=== PATIENT | female | born 1950 | race Caucasian/White ===

== ENCOUNTER → 2022-12-15 19:14 | Outpatient (CLI) | payer MEDICARE, SELFPAY ==
[2022-12-15 22:08] LABS: Influenza A - CEPHEID Flu A NEGATIVE (NEGATIVE); Influenza B - CEPHEID Flu B NEGATIVE (NEGATIVE); Respiratory Syncytial Virus Negative (Negative)
[2022-12-15 22:09] LABS: COVID-19 CEPHEID 4-PLEX PCR Negative (Negative)
== END ==
PROVIDERS: Visit Provider Nurse Practitioner Family
DX: R09.81 Nasal congestion (principal); R53.83 Other fatigue; Z20.822 Contact with and (suspected) exposure to COVID-19
CPT/HCPCS: 0241U

== ENCOUNTER 2025-03-03 07:14 | Inpatient (IN) | payer OTHER, SELFPAY ==
[2025-03-03] VITALS (20 sets, daily range): BP systolic 109–160; BP diastolic 53–75; PULSE 66–93; RESP 14–45; TEMP 36–38.2; O2SAT 88–97; BMI 42.9; BMI 44.8
--- NOTE | 2025-03-03 07:37 | DI.RAD.S_ITS ---
PROCEDURE: XR CHEST 1V INDICATIONS: Shortness of breath TECHNIQUE: One view of the chest was acquired. COMPARISON: None. FINDINGS: Surgical changes and devices: None. Lungs and pleura: Mild interstitial prominence. No focal consolidation is seen. No pleural effusions or pneumothorax. Mediastinum: Cardiac silhouette is enlarged. Bones and chest wall: No suspicious bony lesions. Overlying soft tissues appear unremarkable. IMPRESSION: Cardiomegaly. Mild interstitial prominence may indicate mild edema. Approved by: Asad Downing M.D. on 03/03/2025 at 8:42
--- NOTE | 2025-03-03 07:51 | ED_ITS ---
HPI - SOB/Dyspnea General Chief Complaint: Shortness of Breath/Dyspnea Stated Complaint: post cardiac ablation, fever and sob Time Seen by Provider: 03/03/25 07:51 Source: patient, RN notes reviewed and old records reviewed Mode of arrival: Ambulatory Limitations: no limitations History of Present Illness HPI Narrative: 74-year-old female history of atrial fibrillation anticoagulant on Eliquis, on amiodarone and diltiazem, CHF, GERD, diabetes on tirzepetide. Patient had cardiac ablation on 03/01/2025 at [facility] for atrial fibrillation. Notes she felt short of breath immediately afterwards. She states no chest pain but feels like she can not take a full breath. Patient states developed fevers in the last 24 hours up to 101.5 F at home. Called Cardiology who encouraged her to come for evaluation. She denies nausea or vomiting. She denies any change in her chest discomfort. States that has immediately after her ablation. She states she had a cough immediately afterwards from the intubation but that has not resolved. She denies any upper respiratory symptoms. No pain in her back. No abdominal back or flank pain. Denies diarrhea or constipation or urinary symptoms. Patient states she is on Eliquis daily which she has been taking pre and post ablation, was started on an amiodarone 200 mg b.i.d. has not had her morning dose, she has been on diltiazem extended release 120 mg. States spironolactone 50 mg daily, loratadine, meloxicam, oxycodone and tirzepatide weekly. Reports an allergy to sulfa, shellfish, reports a contrast dye allergy but tolerates with pretreatment with Benadryl, notes prior knee surgery 8 years ago and ankle surgery for fracture after skydiving. Former smoker, no regular alcohol, denies any recreational drugs. Related Data Home Medications ?Medication ?Instructions ?Recorded ?Confirmed amiodarone 200 mg tablet 200 mg PO Q12H 03/03/2502/12 apixaban 5 mg tablet (Eliquis) 5 mg PO BID 03/03/25 clonazepam 0.5 mg tablet 0.5 mg PO DAILY 03/03/25 diltiazem HCl 120 mg capsule,24 120 mg PO Q24H 5 03/03/25 hr,extended release meloxicam 15 mg tablet 15 mg PO DAILY 03/03/2502/12 mupirocin 2 % topical ointment 1 applic topical DIR ECTED 03/03/25 03/03/25 oxycodone 5 mg tablet 5 mg PO Q6H PRN pain 5 03/03/25 pantoprazole 40 mg tablet,delayed 40 mg PO DAILY 03/0303/03/25 release spironolactone 25 mg tablet 25 mg PO BID 03/03/2502/12 tirzepatide (weight loss) 2.5 2.5 mg SUBCUT WEEKLY 03/03/25 mg/0.5 mL subcutaneous pen injector ([employer]) Previous Rx's ?Medication ?Instructions ?Recorded fluticasone propionate 50 1 spray intranasal Q12H #16 grams 12/15/22 mcg/actuation nasal spray,suspension (Flonase Allergy Relief) Allergies Allergy/AdvReac Type Severity Reaction Status Date / Time Sulfa (Sulfonamide Allergy Severe Anaphylaxis Verified 03/03/25 07:26 Antibiotics) Iodinated Contrast Media Allergy Mild Hives Verified 03/03/25 07:26 shellfish derived Allergy Mild Anaphylaxis Verified 03/03/25 07:26 Review of Systems Review of Systems ROS Unobtainable: All systems reviewed & are unremarkable except as noted in HPI and below Patient History Social History Smoking Status: Former smoker Smoking Status: Former smoker tobacco type: cigarettes Exam Narrative Exam Narrative: GENERAL: Alert and oriented x three, female in mild distress HEENT: Head normocephalic, atraumatic, EOMI, pupils reactive, face symmetric, moist mucous membranes NECK: Supple, full range of motion CARDIOVASCULAR: Regular rate and rhythm without murmurs, rubs or gallops. No JVD. No edema bilateral lower extremities. RESPIRATORY: Breath sounds equal bilaterally, no wheezes rales or rhonchi. ABDOMEN: Soft, nontender. Normoactive bowel sounds all 4 quadrants. No guarding or rebound, rigidity, no mass, patient has catheterization sites bilateral inguinal region, there is a small amount of ecchymosis, no warmth, no erythema, pulses are palpable bilaterally. Nontender. : No CVA tenderness EXTREMITIES: Normal range of motion, no clubbing or edema. Neurovascularly intact NEUROLOGICAL: Cranial nerves II through XII grossly intact. Moving all extremities SKIN: Warm, dry, no petechiae, no rashes or lesions. Initial Vital Signs Initial Vital Signs: Vital Signs Temperature 100.8 F H 03/03/25 07:31 Pulse Rate 77 03/03/25 07:31 Respiratory Rate 18 03/03/25 07:31 Blood Pressure 137/62 03/03/25 07:31 Pulse Oximetry 95 03/03/25 07:31 Oxygen Delivery Method Room Air 03/03/25 07:31 Course Orders Ordered: ED Orders 03/03/25 07:37 XR chest 1V Stat EKG-12 Lead Stat RT Consult Eval and Treat STAT 03/03/25 07:45 Complete Blood Count AUTO DIFF Stat Comprehensive Metabolic Panel Stat Lactate (Lactic Acid) Stat NT-proBNP (BNP-Adult 18+) Stat Procalcitonin Stat Prothrombin Time INR Stat Troponin I Stat 03/03/25 08:17 CT angio chest PE protocol Stat 03/03/25 08:39 Blood Culture Stat 03/03/25 09:45 Trop I [Troponin I] Stat 03/03/25 11:36 RT Consult Eval and Treat NOW 03/03/25 11:49 Respiratory Panel (Film Array) Stat 03/04/25 05:00 Basic Metabolic Panel Routine Complete Blood Count AUTO DIFF Routine Acetaminophen (Acetaminophen 325 Mg Tablet) 650 mg PO Q6H PRN PRN Reason: Fever/Mild Pain (1-3) Amiodarone HCl (Amiodarone 200 Mg Tablet) 200 mg PO BID OWEN Apixaban (Apixaban 5 Mg Tablet) 5 mg PO BID OWEN Clonazepam (Clonazepam 0.5 Mg Tablet) 0.5 mg PO DAILY OWEN Diltiazem HCl (Diltiazem Cd 120 Mg Cap) 120 mg PO DAILY OWEN Fluticasone Propionate (Fluticasone 120 [place]/16 Gm [place].Susp) 1 spray NASAL BID OWEN Piperacillin Sod/Tazobactam (Sod 3.375 gm/ Sodium Chloride) 100 mls @ 25 mls/hr IV Q8H OWEN Mupirocin (Mupirocin 22 Gm Oint) 1 applic TOP DIRECTED OWEN Naloxone HCl (Naloxone 0.4 Mg/Ml Vial) 0.2 mg IV Q2MIN PRN PRN Reason: Opiate Reversal Oxycodone HCl (Oxycodone Ir 5 Mg Tablet) 5 mg PO Q6H PRN PRN Reason: pain Pantoprazole Sodium (Pantoprazole Dr 40 Mg Tablet) 40 mg PO DAILY [facility] Spironolactone (Spironolactone 25 Mg Tablet) 25 mg PO BID OWEN Discontinued Medications Amiodarone HCl (Amiodarone 200 Mg Tablet) 200 mg PO Q12H [facility] Apixaban (Apixaban 5 Mg Tablet) 5 mg PO NOW ONE Stop: 03/03/25 11:37 Last Admin: 03/03/25 11:39 Dose: 5 mg Documented By: SB Diphenhydramine HCl (Diphenhydramine 50 Mg/Ml Vial) 50 mg IV NOW ONE Stop: 03/03/25 08:18 Last Admin: 03/03/25 08:31 Dose: 50 mg Documented By: BS Fluticasone Propionate (Fluticasone 120 [place]/16 Gm [place].Susp) 1 spray NASAL Q12H [facility] Piperacillin Sod/Tazobactam (Sod 4.5 gm/ Sodium Chloride) 100 mls @ 200 mls/hr IV NOW ONE Stop: 03/03/25 09:31 Last Infusion: 03/03/25 10:34 Dose: Infused Documented By: Admin: 03/03/25 09:54 Dose: 200 mls/hr Documented By: BETINA Piperacillin Sod/Tazobactam (Sod 3.375 gm/ Sodium Chloride) 100 mls @ 25 mls/hr IV Q8H [facility] Stop: 03/08/25 11:44 Methylprednisolone (Methylprednisolone Succ 125 Mg/2 Ml Vial) 125 mg IV NOW ONE Stop: 03/03/25 08:18 Last Admin: 03/03/25 08:31 Dose: 125 mg Documented By: BS Non-Formulary Medication (Diltiazem Hcl) 120 mg PO Q24H [facility] Vital Signs Vital signs: Vital Signs - 8 hr 03/03/25 07:31 03/03/25 07:53 03/03/25 07:54 Temperature 100.8 F H Pulse Rate 77 93 H Respiratory Rate 18 28 H Blood Pressure 137/62 142/63 H Pulse Oximetry 95 93 Oxygen Delivery Method Room Air Oxygen Flow Rate 03/03/25 07:54 03/03/25 08:00 03/03/25 08:00 Temperature Pulse Rate 90 86 Respiratory Rate 30 H 44 H Blood Pressure 132/63 Pulse Oximetry 93 93 Oxygen Delivery Method Oxygen Flow Rate 03/03/25 08:30 03/03/25 08:30 03/03/25 09:02 Temperature 100.8 F H Pulse Rate 89 83 Respiratory Rate 41 H 24 Blood Pressure 121/75 Pulse Oximetry 92 92 Oxygen Delivery Method Nasal Cannula Oxygen Flow Rate 2 03/03/25 09:17 03/03/25 09:17 03/03/25 09:30 Temperature Pulse Rate 79 Respiratory Rate 27 H Blood Pressure 136/61 118/55 L Pulse Oximetry 93 Oxygen Delivery Method Oxygen Flow Rate 03/03/25 09:30 03/03/25 09:44 03/03/25 09:44 Temperature 99.2 F Pulse Rate 78 86 Respiratory Rate 26 H 27 H Blood Pressure 136/62 Pulse Oximetry 93 88 L Oxygen Delivery Method Nasal Cannula Room Air Oxygen Flow Rate 2 MDM - SOB/Dyspnea Lab Data 03/03/25 07:45 03/03/25 07:45 Labs: Lab Results 03/03/25 03/03/25 Range/Units 07:45 09:45 WBC 15.6 H (4.5-11.0) X10^3/uL RBC 3.82 L (4.0-5.2) X10^6/uL Hgb 11.3 L (12.0-16.0) g/dL Hct 33.5 L (36-46) % MCV 87.6 (80-100) fL MCH 29.5 (26-34) PG MCHC 33.6 (30-36) % RDW 14.5 (11.6-14.8) % Plt Count 236 (150-400) X10^3/uL Neut % (Auto) 71.4 (50-75) % Lymph % (Auto) 16.5 L (25-40) % Kerr % (Auto) 11.3 (3-14) % Eos % (Auto) 0.5 L (2-4) % Baso % (Auto) 0.3 (0-2) % Neut # (Auto) 51399 H (5873-0774) /uL Lymph # (Auto) 2600 (2284-5552) /uL Kerr # (Auto) 1800 H (0-900) /uL Eos # (Auto) 100 (0-450) /uL Baso # (Auto) 0 (0-100) /uL PT 16.7 H (9.4-12.5) SECONDS INR 1.5 H (0.9-1.3) Sodium 135 L (137-145) mmol/L Potassium 3.8 (3.4-5.1) mmol/L Chloride 103 (98-107) mmol/L Carbon Dioxide 22 (22-32) mmol/L BUN 21 H (7-17) mg/dL Creatinine 1.00 (0.52-1.04) mg/dL Estimated GFR 59 L (>60) mL/min BUN/Creatinine Ratio 21.0 (6-22) Glucose 116 H (70-99) mg/dL Lactate 1.9 (0.7-2.1) mmol/L Calcium 8.6 (8.4-10.2) mg/dL Total Bilirubin 1.0 (0.2-1.3) mg/dL AST 51 H (14-36) IU/L ALT 25 (<35) IU/L Alkaline Phosphatase 53 (38-126) U/L Troponin I 2.370 H* 2.080 H* (0.01-0.034) ng/mL NT-Pro-B Natriuret Pep 798 H (<125) pg/mL Total Protein 7.0 (6.3-8.2) g/dL Albumin 4.1 (3.5-5.0) g/dL Globulin 2.9 (1.7-4.1) g/dL Albumin/Globulin Ratio 1.4 (1.0-2.8) Procalcitonin 0.051 (<0.5) ng/mL ECG Data Attestation: I personally reviewed and interpreted this ECG as follows: Prior ECG tracings: not available for review Interpretation: Sinus rhythm rate 87 WI 150 QRS 80 QTC of 409, no acute ST-elevation or depression appreciated. No prior for comparison. Sinus rhythm rate of 78 WI 156 QRS 84 QTC of 412, no acute ST elevation depression. No dynamic changes appreciated. MDM Narrative Medical decision making narrative: Sinus rhythm, rate of 87, no acute ST changes. Labs show white count of 15.6, hemoglobin 11.3 platelets are 236 no priors for comparison, patient has predominance of neutrophils count. INR is 1.5 patient does take apixaban daily. Chemistries shows sodium 135 BUN 21 electrolytes are otherwise appropriate creatinine is 1 glucose is 116 with a lactate of 1.9 AST is 51 but bilirubin ALT are normal, troponin 2.37 this is expected in the setting of a recent cardiac ablation repeat troponin was sent in his trending downward at 2.08. BNP 798, procalcitonin 0.051 Chest x-ray shows cardiomegaly, mild interstitial prominence may indicate mild edema. No focal consolidation, no pleural effusions or pneumothorax. CT angio no pulmonary embolism, moderate right pleural effusion with underlying vascular congestion. Heart size is normal, small hiatal hernia, no pericardial effusion. No aortic aneurysm. 0.7 cm left thyroid nodule. Patient had her home amiodarone and diltiazem dose here in the department. 74-year-old female with recent intubation and cardiac ablation on 03/01/2025 presents with fever, were hip shows a right pleural effusion, was started on oral antibiotics. Blood cultures are pending, patient has a white count of 15 but lactate and procalcitonin are normal. Troponin is elevated was repeated. During patient's stay O2 sats drop below 90%. You have been with ambulation they were 88%, patient is not normally on O2. No reported lung disease. Paged @ [phone] Spoke with cardiology at [facility] @ [phone], Dr. Johnston, would recommend treat for pneumonia, diuretics feel patient could stay here but if it is felt patient needs transfer today they would accept. We will speak with the hospitalist and recontact if they prefer transfer. Cardiology also notes that if patient is not improving over the next day or 2 can be re-contacted for transfer as well. Dr. Ace, hospitalist @ [phone] for [facility] accepts for inpatient. Discharge Plan Departure Patient Disposition: Admitted As Inpatient Clinical Impression: Pleural effusion on right, History of cardiac ablation for atrial fibrillation, Pneumonia Admit Date/Time: 03/03/25 11:39 Admit Provider: Jessica Ace
--- NOTE | 2025-03-03 08:05 | EKG_ITS ---
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
--- NOTE | 2025-03-03 08:17 | DI.CT.S_ITS ---
PROCEDURE: CT ANGIO CHEST PE PROTOCOL INDICATIONS: s/p cardiac ablation TECHNIQUE: After the administration of intravenous contrast, 2 mm thick sections acquired from the pulmonary apices to the posterior costophrenic angles. 3-dimensional maximum intensity projection (MIP) coronal and sagittal reformats were then acquired through the thorax. For radiation dose reduction, the following was used: automated exposure control, adjustment of mA and/or kV according to patient size. COMPARISON: None. FINDINGS: Image quality: Diagnostic. Pulmonary arteries: Pulmonary arteries are normal in size, and demonstrate no intraluminal filling defects to suggest central pulmonary embolism. Lower Neck: No enlarged lymph nodes. Thyroid: 2.7 cm left thyroid nodule Axillae: No enlarged lymph nodes. Chest Wall: Unremarkable. Bones: Unremarkable. Lungs and Pleura: Right moderate pleural effusion. Vascular congestion. Heart size normal. Small hiatal hernia Heart: Heart size is normal. No pericardial effusion. Thoracic Vessels: No aortic aneurysm. Mediastinum and [place]: No enlarged lymph nodes. Esophagus: No wall thickening. Small hiatal hernia. Upper Abdomen: Visualized upper abdomen solid organs and bowel loops appear normal. IMPRESSION: No pulmonary embolus. Moderate right pleural effusion with underlying vascular congestion Approved by: Nathan Daley M.D. on 03/03/2025 at 8:24
[2025-03-03] MEDS: diphenhydrAMINE 50 MG/ML VIAL IV (08:31)
[2025-03-03] MEDS: methylPREDNISolone succ 125 MG/2 ML VIAL IV (08:31)
[2025-03-03 08:33] LABS: Add Manual Diff / Slide Review NO; Hematocrit 33.5 % (36-46); Hemoglobin 11.3 g/dL (12.0-16.0); Lymphocytes Absolute Auto 2600 /uL (1100-4500); Mean Corpuscular HGB Conc 33.6 % (30-36); Mean Corpuscular Hemoglobin 29.5 PG (26-34); Mean Corpuscular Volume 87.6 fL (80-100); Platelet Count 236 X10^3/uL (150-400)
[2025-03-03 08:42] LABS: INR 1.5 (0.9-1.3); Prothrombin Time 16.7 SECONDS (9.4-12.5)
[2025-03-03 09:07] LABS: Alanine Aminotransferase 25 IU/L (<35); Albumin 4.1 g/dL (3.5-5.0); Albumin Globulin Ratio 1.4 (1.0-2.8); Alkaline Phosphatase 53 U/L (38-126); Blood Urea Nitrogen 21 mg/dL (7-17); Calcium 8.6 mg/dL (8.4-10.2); Carbon Dioxide 22 mmol/L (22-32); Chloride 103 mmol/L (98-107); Estimated Glomerular Filt Rate 59 mL/min (>60); Globulin 2.9 g/dL (1.7-4.1); Glucose 116 mg/dL (70-99); HEMOLYSIS < 15 (0-50); Lactate (Lactic Acid) 1.9 mmol/L (0.7-2.1); Potassium 3.8 mmol/L (3.4-5.1); Sodium 135 mmol/L (137-145); Total Protein 7.0 g/dL (6.3-8.2)
[2025-03-03 09:19] LABS: NT-proBNP (BNP-Adult 18+) 798 pg/mL (<125)
[2025-03-03 09:22] LABS: Troponin I 2.370 ng/mL (0.01-0.034)
[2025-03-03 09:24] LABS: Procalcitonin 0.051 ng/mL (<0.5)
[2025-03-03] MEDS: PIPERACILLIN/TAZO 4.5 GM in SODIUM CHLORIDE 0.9% 100 ML IV (09:54)
--- NOTE | 2025-03-03 10:06 | EKG_ITS ---
[place] [address] [address] [place] [address] Test Date: 2025-03-03 Pat Name: Alana Barron Department: Room: 226 Gender: Female Linesperson: RAVI : 1950 Requested By: Order Number: [id number] Reading MD: Enrico Mcqueen MD Measurements Intervals [place] Rate: 78 P: 79 AR: 156 QRS: 37 QRSD: 84 T: 35 QT: 362 QTc: 412 Interpretive Statements Normal sinus rhythm Electronically Signed On 03-04-2025 5:57:33 PDT by Enrico Mcqueen MD
[2025-03-03 10:36] LABS: Troponin I 2.080 ng/mL (0.01-0.034)
[2025-03-03] MEDS: APIXABAN 5 MG TABLET PO ×2 (11:39→20:03)
[2025-03-03 12:45] LABS: Coronavirus NL 63 Not Detected (Not Detect); SARS- CoV-2 Not Detected (Not Detecte)
[2025-03-03] MEDS: PIPERACILLIN/TAZO 3.375 GM in SODIUM CHLORIDE 0.9% 100 ML IV ×2 (14:39→21:12)
[2025-03-03] MEDS: SODIUM CHLORIDE 0.9% FLUSH 10 ML IV (14:40)
--- NOTE | 2025-03-03 18:57 | PC.NURSE ---
medication administration: oxycodone 5mg PO given per order, for pain 4-6 per provider.
--- NOTE | 2025-03-03 19:37 | PM.HP.1 ---
History of Present Illness History of Present Illness Chief complaint: post cardiac ablation, fever and sob Narrative: 74-year-old female with fairly recent diagnosis of permanent atrial fibrillation on chronic Eliquis anticoagulation, chronic congestive heart failure, GERD, diabetes mellitus on his appetite, who underwent a cardiac ablation for atrial fibrillation 2 days ago who presented to the emergency department complaining of shortness of breath and fever. Patient reports she learned she would atrial fibrillation through her smart watch. She states that she would receive notifications and thought that the watch was malfunctioning. She was not particularly symptomatic. She did notice when exercising she would get fairly high heart rates at 1 time as high as 180. She did find her exercise tolerance had decreased but she assumed it was related to her age or being deconditioned. When she went to see her primary care provider for her physical, she mentioned at the end of the visit about her watch showing AFib. Her PCP obtained an EKG which showed AFib and she was referred to Cardiology. A cardioversion was done after she was placed on anticoagulation but was unsuccessful. She ultimately underwent ablation 48 hours ago. She states that when she came out of anesthesia she was short of breath. She also had a cough which she presumed was related to intubation. She additionally had a sore throat. She had pressure in her chest which she was reassured was normal. She additionally had some abdominal discomfort which was new for her. She states she is typically able to eat anything she wants but has had difficulty eating a meal since her ablation. She states that she has been taking Protonix since the ablation due to this sensation of abdominal fullness. She states she has had ongoing chest discomfort which she expected after the ablation but has continued to have shortness of breath and this abdominal fullness sensation. Today however she developed a fever and came to the emergency department for further evaluation. In the emergency department she had a temperature of 100.8?, normal heart rate, respiratory rate in the high 20s to low 40s, O2 saturation down to 88% and up to 92% on 2 L. white blood cell count was 15 point. INR 1.5. Chemistry panel revealed a sodium of 135. Initial troponin was 2.37 and on recheck was 2.08. Chest x-ray revealed cardiomegaly with mild interstitial prominence. CT pulmonary angiogram revealed no PE. There is moderate right pleural effusion with underlying vascular congestion. There was a small hiatal hernia as well. She was given a dose of Zosyn 4.5 g IV. Admission was recommended. Since admission, patient notes she is feeling better. She has defervesced. She is now able to eat a meal and states it is the 1st real meal she has had since her ablation. [facility]LY [facility] Social History Smoking Status: Former smoker Meds Home Medications and Allergies Home Medications ?Medication ?Instructions ?Recorded ?Confirmed ?Type fluticasone propionate 50 1 spray intranasal Q12H #16 grams 12/15/22 03/03/25 Rx mcg/actuation nasal spray,suspension (Flonase Allergy Relief) amiodarone 200 mg tablet 200 mg PO Q12H 03/03/25 03/03/25 History apixaban 5 mg tablet (Eliquis) 5 mg PO BID 03/03/25 03/03/25 History clonazepam 0.5 mg tablet 0.5 mg PO DAILY PRN anxiety 03/03/25 03/03/25 History diltiazem HCl 120 mg capsule,24 120 mg PO Q24H 03/03/25 03/03/25 History hr,extended release meloxicam 15 mg tablet 15 mg PO DAILY PRN back pain 03/03/25 03/03/25 History mupirocin 2 % topical ointment 1 applic topical DIRECTED 03/03/25 03/03/25 History oxycodone 5 mg tablet 5 mg PO Q6H PRN pain 03/03/25 03/03/25 History pantoprazole 40 mg tablet,delayed 40 mg PO DAILY 03/03/25 03/03/25 History release spironolactone 25 mg tablet 25 mg PO BID 03/03/25 03/03/25 History tirzepatide (weight loss) 2.5 2.5 mg SUBCUT WEEKLY 03/03/25 03/03/25 History mg/0.5 mL subcutaneous pen injector (Zepbound) Allergies Allergy/AdvReac Type Severity Reaction Status Date / Time Sulfa (Sulfonamide Allergy Severe Anaphylaxis Verified 03/03/25 07:26 Antibiotics) Iodinated Contrast Media Allergy Mild Hives Verified 03/03/25 07:26 shellfish derived Allergy Mild Anaphylaxis Verified 03/03/25 07:26 Review of Systems Review of Systems Narrative: All other systems were reviewed negative Exam Vital Signs (past 8 hours): - 03/03/25 12:00 03/03/25 12:00 03/03/25 12:00 Temperature 97.9 F Pulse Rate 71 79 Respiratory Rate 22 24 Blood Pressure 109/53 L 150/66 H Pulse Oximetry 95 94 Oxygen Delivery Method 03/03/25 12:30 03/03/25 12:30 03/03/25 13:47 Temperature Pulse Rate 66 Respiratory Rate 28 H Blood Pressure 136/63 Pulse Oximetry 93 Oxygen Delivery Method Nasal Cannula 03/03/25 13:51 03/03/25 18:00 Temperature 97.5 F L Pulse Rate 72 69 Respiratory Rate 24 21 Blood Pressure 128/61 134/69 Pulse Oximetry 94 91 Oxygen Delivery Method Oxygen Delivery Method Nasal Cannula Oxygen Flow Rate 2 Narrative Exam Narrative: GEN: Very pleasant middle-aged female, Alert and oriented x3, no acute distress HEENT: Normocephalic, face symmetric, pupils equal round reactive to light, extraocular movements intact, sclerae anicteric, conjunctiva clear, nares patent, oropharynx reveals an intact soft and hard palate with moist mucous membranes, dentition is fair NECK: Supple, no lymphadenopathy, thyroid without enlargement or nodularity, carotids no bruits CHEST: Respiratory excursions symmetric, coarse but clear to auscultation bilaterally CV: Regular rate and rhythm, no murmurs, rubs, gallops, PMI can not be palpated ABD: Soft, obese, nontender, nondistended, bowel sounds present in all 4 quadrants, body habitus limits exam EXTR: Warm, well perfused, no clubbing/cyanosis/edema SKIN: Warm and dry, without rash NEURO: Alert and oriented x3, grossly intact Objective Labs 03/03/25 07:45 03/03/25 07:45 Labs: Laboratory Results - last 24 hr 03/03/25 03/03/25 03/03/25 07:45 09:45 11:49 WBC 15.6 H RBC 3.82 L Hgb 11.3 L Hct 33.5 L MCV 87.6 MCH 29.5 MCHC 33.6 RDW 14.5 Plt Count 236 Neut % (Auto) 71.4 Lymph % (Auto) 16.5 L [place] % (Auto) 11.3 Eos % (Auto) 0.5 L Baso % (Auto) 0.3 Neut # (Auto) 43343 H Lymph # (Auto) 2600 [place] # (Auto) 1800 H Eos # (Auto) 100 Baso # (Auto) 0 PT 16.7 H INR 1.5 H Sodium 135 L Potassium 3.8 Chloride 103 Carbon Dioxide 22 BUN 21 H Creatinine 1.00 Estimated GFR 59 L BUN/Creatinine Ratio 21.0 Glucose 116 H Lactate 1.9 Calcium 8.6 Total Bilirubin 1.0 AST 51 H ALT 25 Alkaline Phosphatase 53 Troponin I 2.370 H* 2.080 H* NT-Pro-B Natriuret Pep 798 H Total Protein 7.0 Albumin 4.1 Globulin 2.9 Albumin/Globulin Ratio 1.4 Procalcitonin 0.051 Chlamy pneumoniae PCR Not detected Adenovirus (PCR) Not detected B. pertussis DNA (PCR) Not detected B.parapertussis DNA PCR Not detected Coronavirus OC43 (PCR) Not detected Coronavirus HKU1 (PCR) Not detected Coronavirus 229E (PCR) Not detected SARS-CoV-2 (PCR) Not detected Coronavirus NL63 (PCR) Not detected Human Metapneumovir PCR Not detected Influenza Type A (PCR) Not detected Influenza Type B (PCR) Not detected M. pneumoniae (PCR) Not detected Parainfluenza 1 (PCR) Not detected Parainfluenza 2 (PCR) Not detected Parainfluenza 3 (PCR) Not detected Parainfluenza 4 (PCR) Not detected RSV (PCR) Not detected Entero/Rhino (PCR) Not detected Assessment & Plan Assessment & Plan narrative: 1. Suspected aspiration pneumonitis Patient was short of breath immediately postprocedure and is now febrile. She also has a mild leukocytosis. Suspect an aspiration event. We will continue IV Zosyn. She is now defervesced. Will continue close monitoring. 2. Acute hypoxic respiratory failure Possibly secondary to aspiration pneumonitis as well as right pleural effusion. Will wean O2 as able. She may benefit from a low-dose of furosemide if she continues to require some oxygen in the morning. 3. Atrial fibrillation status post ablation She is now in sinus rhythm. Continue apixaban, amiodarone, diltiazem. Although her troponin is elevated, it is trending down. 4. Dyspepsia Continue pantoprazole for now 5. Chronic congestive heart failure, unspecified She has not on any chronic diuretics with the exception of spironolactone. This will be continued. Her BNP was 798. As noted above will consider some gentle diuresis if she continues to require oxygen in the morning. Code status Full Prophylaxis On Eliquis Disposition Possible discharge home tomorrow if she continues to feel improved and is able to wean off of oxygen Time-Based Coding :: [TOTAL MINUTES] spent with patient and on the chart (including review of chart, obtaining history, exam, reviewing outside data, placing orders, documenting exam and treatment plan, and counseling patient) on [DATE]. Quality VTE Deep Vein Thrombosis/Pulmonary Embolism Present on Admission: No
[2025-03-03] MEDS: SPIRONOLACTONE 25 MG TABLET PO (20:03)
[2025-03-03] MEDS: AMIODARONE 200 MG TABLET PO (20:03)
[2025-03-04 04:39] VITALS: BP 113/56; PULSE 67; RESP 14; TEMP 35.6; O2SAT 95
[2025-03-04 05:12] LABS: Add Manual Diff / Slide Review NO; Hematocrit 32.2 % (36-46); Hemoglobin 11.1 g/dL (12.0-16.0); Lymphocytes Absolute Auto 1100 /uL (1100-4500); Mean Corpuscular HGB Conc 34.4 % (30-36); Mean Corpuscular Hemoglobin 30.2 PG (26-34); Mean Corpuscular Volume 88.0 fL (80-100); Platelet Count 197 X10^3/uL (150-400)
[2025-03-04] MEDS: PIPERACILLIN/TAZO 3.375 GM in SODIUM CHLORIDE 0.9% 100 ML IV ×3 (05:13→22:21)
[2025-03-04 05:24] LABS: Blood Urea Nitrogen 16 mg/dL (7-17); Calcium 8.6 mg/dL (8.4-10.2); Carbon Dioxide 22 mmol/L (22-32); Chloride 105 mmol/L (98-107); Estimated Glomerular Filt Rate > 60 mL/min (>60); Glucose 132 mg/dL (70-99); HEMOLYSIS < 15 (0-50); Potassium 3.8 mmol/L (3.4-5.1); Sodium 135 mmol/L (137-145)
[2025-03-04 06:04] VITALS: O2SAT 93
--- NOTE | 2025-03-04 07:42 | P.PN_ITS ---
Subjective Subjective Interval history: Summary: 74-year-old female with fairly recent diagnosis of permanent atrial fibrillation on chronic Eliquis anticoagulation, chronic congestive heart failure, GERD, diabetes mellitus on his appetite, who underwent a cardiac ablation for atrial fibrillation 2 days ago who presented to the emergency department complaining of shortness of breath and fever. Patient reports she learned she would atrial fibrillation through her smart watch. She states that she would receive notifications and thought that the watch was malfunctioning. She was not particularly symptomatic. She did notice when exercising she would get fairly high heart rates at 1 time as high as 180. She did find her exercise tolerance had decreased but she assumed it was related to her age or being deconditioned. When she went to see her primary care provider for her physical, she mentioned at the end of the visit about her watch showing AFib. Her PCP obtained an EKG which showed AFib and she was referred to Cardiology. A cardioversion was done after she was placed on anticoagulation but was unsuccessful. She ultimately underwent ablation 48 hours ago. She states that when she came out of anesthesia she was short of breath. She also had a cough which she presumed was related to intubation. She additionally had a sore throat. She had pressure in her chest which she was reassured was normal. She additionally had some abdominal discomfort which was new for her. She states she is typically able to eat anything she wants but has had difficulty eating a meal since her ablation. She states that she has been taking Protonix since the ablation due to this sensation of abdominal fullness. She states she has had ongoing chest discomfort which she expected after the ablation but has continued to have shortness of breath and this abdominal fullness sensation. Today however she developed a fever and came to the emergency department for further evaluation. In the emergency department she had a temperature of 100.8?, normal heart rate, respiratory rate in the high 20s to low 40s, O2 saturation down to 88% and up to 92% on 2 L. white blood cell count was 15 point. INR 1.5. Chemistry panel revealed a sodium of 135. Initial troponin was 2.37 and on recheck was 2.08. Chest x-ray revealed cardiomegaly with mild interstitial prominence. CT pulmonary angiogram revealed no PE. There is moderate right pleural effusion with underlying vascular congestion. There was a small hiatal hernia as well. She was given a dose of Zosyn 4.5 g IV. Admission was recommended. Since admission, patient notes she is feeling better. She has defervesced. She is now able to eat a meal and states it is the 1st real meal she has had since her ablation. S: She was improving. Minimal cough. She was comfortable on oxygen. She remains in sinus rhythm. O: NAD, alert and oriented. Fluent speech. Lungs are clear, normal rate and effort. Heart is regular, no murmur gallop or rub. Abdomen is soft, non distended. Extremities are free of edema. IMAGING: CXR: Cardiomegaly. Mild interstitial prominence may indicate mild edema. CTA Chest: No pulmonary embolus. Moderate right pleural effusion with underlying vascular congestion A/P: 1. Aspiration pneumonia, improving. Patient was short of breath immediately postprocedure and is now febrile. She also has a mild leukocytosis. Suspect an aspiration event. We will continue IV Zosyn. She is now defervesced. Will continue close monitoring. 2. Acute hypoxic respiratory failure, improving. Possibly secondary to aspiration pneumonitis as well as right pleural effusion. Will wean O2 as able. She may benefit from a low-dose of furosemide if she continues to require some oxygen in the morning. 3. Atrial fibrillation status post ablation She is now in sinus rhythm. Continue apixaban, amiodarone, diltiazem. Although her troponin is elevated, it is trending down. 4. Dyspepsia Continue pantoprazole for now 5. Chronic congestive heart failure, unspecified She has not on any chronic diuretics with the exception of spironolactone. This will be continued. Her BNP was 798. As noted above will consider some gentle diuresis if she continues to require oxygen in the morning. PLAN: -Continue IV Abx (Zosyn). -Wean O2 as able. -Out of bed. Code status Full Prophylaxis On Eliquis Exam Vital Signs (past 8 hours): - 03/04/25 04:39 03/04/25 06:04 Temperature 96.1 F L Pulse Rate 67 Respiratory Rate 14 Blood Pressure 113/56 L Pulse Oximetry 95 93 Oxygen Flow Rate 0 1 Oxygen Delivery Method Nasal Cannula Oxygen Flow Rate 1 Objective Labs 03/04/25 04:47 03/04/25 04:47 Labs: Laboratory Results - last 24 hr 03/03/25 03/03/25 03/03/25 07:45 09:45 11:49 WBC 15.6 H RBC 3.82 L Hgb 11.3 L Hct 33.5 L MCV 87.6 MCH 29.5 MCHC 33.6 RDW 14.5 Plt Count 236 Neut % (Auto) 71.4 Lymph % (Auto) 16.5 L [place] % (Auto) 11.3 Eos % (Auto) 0.5 L Baso % (Auto) 0.3 Neut # (Auto) 02834 H Lymph # (Auto) 2600 [place] # (Auto) 1800 H Eos # (Auto) 100 Baso # (Auto) 0 PT 16.7 H INR 1.5 H Sodium 135 L Potassium 3.8 Chloride 103 Carbon Dioxide 22 BUN 21 H Creatinine 1.00 Estimated GFR 59 L BUN/Creatinine Ratio 21.0 Glucose 116 H Lactate 1.9 Calcium 8.6 Total Bilirubin 1.0 AST 51 H ALT 25 Alkaline Phosphatase 53 Troponin I 2.370 H* 2.080 H* NT-Pro-B Natriuret Pep 798 H Total Protein 7.0 Albumin 4.1 Globulin 2.9 Albumin/Globulin Ratio 1.4 Procalcitonin 0.051 Chlamy pneumoniae PCR Not detected Adenovirus (PCR) Not detected B. pertussis DNA (PCR) Not detected B.parapertussis DNA PCR Not detected Coronavirus OC43 (PCR) Not detected Coronavirus HKU1 (PCR) Not detected Coronavirus 229E (PCR) Not detected SARS-CoV-2 (PCR) Not detected Coronavirus NL63 (PCR) Not detected Human Metapneumovir PCR Not detected Influenza Type A (PCR) Not detected Influenza Type B (PCR) Not detected M. pneumoniae (PCR) Not detected Parainfluenza 1 (PCR) Not detected Parainfluenza 2 (PCR) Not detected Parainfluenza 3 (PCR) Not detected Parainfluenza 4 (PCR) Not detected RSV (PCR) Not detected Entero/Rhino (PCR) Not detected 03/04/25 04:47 WBC 10.4 RBC 3.66 L Hgb 11.1 L Hct 32.2 L MCV 88.0 MCH 30.2 MCHC 34.4 RDW 14.0 Plt Count 197 Neut % (Auto) 84.0 H Lymph % (Auto) 10.7 L [place] % (Auto) 5.1 Eos % (Auto) 0.0 L Baso % (Auto) 0.2 Neut # (Auto) 8700 H Lymph # (Auto) 1100 [place] # (Auto) 500 Eos # (Auto) 0 Baso # (Auto) 0 PT INR Sodium 135 L Potassium 3.8 Chloride 105 Carbon Dioxide 22 BUN 16 Creatinine 0.78 Estimated GFR > 60 BUN/Creatinine Ratio 20.5 Glucose 132 H Lactate Calcium 8.6 Total Bilirubin AST ALT Alkaline Phosphatase Troponin I NT-Pro-B Natriuret Pep Total Protein Albumin Globulin Albumin/Globulin Ratio Procalcitonin Chlamy pneumoniae PCR Adenovirus (PCR) B. pertussis DNA (PCR) B.parapertussis DNA PCR Coronavirus OC43 (PCR) Coronavirus HKU1 (PCR) Coronavirus 229E (PCR) SARS-CoV-2 (PCR) Coronavirus NL63 (PCR) Human Metapneumovir PCR Influenza Type A (PCR) Influenza Type B (PCR) M. pneumoniae (PCR) Parainfluenza 1 (PCR) Parainfluenza 2 (PCR) Parainfluenza 3 (PCR) Parainfluenza 4 (PCR) RSV (PCR) Entero/Rhino (PCR) [facility] Social History Smoking Status: Former smoker Assessment & Plan Time-Based Coding :: [TOTAL MINUTES] spent with patient and on the chart (including review of chart, obtaining history, exam, reviewing outside data, placing orders, documenting exam and treatment plan, and counseling patient) on [DATE]. Quality VTE Deep Vein Thrombosis/Pulmonary Embolism Present on Admission: No
[2025-03-04] MEDS: SPIRONOLACTONE 25 MG TABLET PO (09:40)
[2025-03-04] MEDS: APIXABAN 5 MG TABLET PO ×2 (09:40→20:44)
[2025-03-04] MEDS: AMIODARONE 200 MG TABLET PO ×2 (09:40→20:44)
[2025-03-04] MEDS: PANTOPRAZOLE DR 40 MG TABLET PO (09:40)
[2025-03-04 10:00] VITALS: BP 116/57; PULSE 81; RESP 19; TEMP 36.3; O2SAT 98
--- NOTE | 2025-03-04 11:02 | CM.DANOTE ---
Initial DCP Assessment Note. Review EMR and PT Interview. Met with patient at bedside to discuss discharge needs.PT is alert x 4 sitting up in bed. Independent at baseline. Lives alone in her own home. Payor:? [employer] PCP: Dr. Edgardo Brody ph# [phone]. [facility]. Summary & Plan:?74 y/o female arrived to the ED via private auto c/o fever and SOB. Recent stay at [facility] for cardiac ablation on 03/01/25. Admitted INPT ICU Dx. PNA. Plan: IV ABO, and wean oxygen. Blood cultures pending. Discharge Planning/Care Management CM Discharge Assessment Start: 03/03/25 11:50 Freq: Status: Active Protocol: Document 03/04/25 10:58 (Rec: 03/04/25 11:02 [id number]) Discharge Planning Assessment Assigned Discharge Shena Stevens RN CM [employer] Provider Dr. Edgardo Brody ph# [phone] Insurance [employer] Advance Directives? Yes Advance Directives Yes on File History Provided By Patient Has Patient been No admitted in last 30 days? Prior Living Apartment/Condo Arrangements Type of Drives own vehicle transporation used prior to admit Comment Patient is planning on driving herself home. The next few weeks she will be staying in the [facility] then return to [place]. She will [employer] deliver her car to the hospital upon discharge. Independent with ADL Yes 's Is patient alert and Yes oriented? Barriers to No Discharge Discharge Plan Home Referrals Initiated None needed Review Status In Process Please Provide Date 03/04/25 Initial DC Assessment Was Performed Next Review Type Continued Stay Review
[2025-03-04 14:00] VITALS: BP 121/57; PULSE 71; RESP 18; TEMP 36.5; O2SAT 96
[2025-03-04] MEDS: SODIUM CHLORIDE 0.9% FLUSH 10 ML IV (15:15)
[2025-03-04 18:00] VITALS: BP 136/60; PULSE 70; RESP 21; O2SAT 98
[2025-03-04 21:00] VITALS: BP 120/58; PULSE 70; RESP 17; TEMP 36.2; O2SAT 96
[2025-03-05] VITALS: BP 126/60; PULSE 72; RESP 18; TEMP 35.8; O2SAT 96
[2025-03-05 04:24] VITALS: BP 113/53; PULSE 70; RESP 28; TEMP 35.8; O2SAT 95
[2025-03-05 05:19] LABS: Add Manual Diff / Slide Review NO; Hematocrit 32.6 % (36-46); Hemoglobin 11.0 g/dL (12.0-16.0); Lymphocytes Absolute Auto 2600 /uL (1100-4500); Mean Corpuscular HGB Conc 33.7 % (30-36); Mean Corpuscular Hemoglobin 29.8 PG (26-34); Mean Corpuscular Volume 88.4 fL (80-100); Platelet Count 213 X10^3/uL (150-400)
[2025-03-05 05:28] LABS: Blood Urea Nitrogen 22 mg/dL (7-17); Calcium 8.7 mg/dL (8.4-10.2); Carbon Dioxide 25 mmol/L (22-32); Chloride 105 mmol/L (98-107); Estimated Glomerular Filt Rate > 60 mL/min (>60); Glucose 92 mg/dL (70-99); HEMOLYSIS < 15 (0-50); Potassium 3.6 mmol/L (3.4-5.1); Sodium 137 mmol/L (137-145)
[2025-03-05] MEDS: PANTOPRAZOLE DR 40 MG TABLET PO (06:05)
[2025-03-05] MEDS: PIPERACILLIN/TAZO 3.375 GM in SODIUM CHLORIDE 0.9% 100 ML IV (06:05)
--- NOTE | 2025-03-05 07:38 | PC.NURSE ---
medication administration: 5mg oxycodone PO administered as documented in MAR.
[2025-03-05 08:00] VITALS: BP 113/53; PULSE 70; RESP 24; O2SAT 96
--- NOTE | 2025-03-05 08:03 | P.PN_ITS ---
Subjective Subjective Interval history: Summary: 74-year-old female with fairly recent diagnosis of permanent atrial fibrillation on chronic Eliquis anticoagulation, chronic congestive heart failure, GERD, diabetes mellitus on his appetite, who underwent a cardiac ablation for atrial fibrillation 2 days ago who presented to the emergency department complaining of shortness of breath and fever. Patient reports she learned she would atrial fibrillation through her smart watch. She states that she would receive notifications and thought that the watch was malfunctioning. She was not particularly symptomatic. She did notice when exercising she would get fairly high heart rates at 1 time as high as 180. She did find her exercise tolerance had decreased but she assumed it was related to her age or being deconditioned. When she went to see her primary care provider for her physical, she mentioned at the end of the visit about her watch showing AFib. Her PCP obtained an EKG which showed AFib and she was referred to Cardiology. A cardioversion was done after she was placed on anticoagulation but was unsuccessful. She ultimately underwent ablation 48 hours ago. She states that when she came out of anesthesia she was short of breath. She also had a cough which she presumed was related to intubation. She additionally had a sore throat. She had pressure in her chest which she was reassured was normal. She additionally had some abdominal discomfort which was new for her. She states she is typically able to eat anything she wants but has had difficulty eating a meal since her ablation. She states that she has been taking Protonix since the ablation due to this sensation of abdominal fullness. She states she has had ongoing chest discomfort which she expected after the ablation but has continued to have shortness of breath and this abdominal fullness sensation. Today however she developed a fever and came to the emergency department for further evaluation. In the emergency department she had a temperature of 100.8?, normal heart rate, respiratory rate in the high 20s to low 40s, O2 saturation down to 88% and up to 92% on 2 L. white blood cell count was 15 point. INR 1.5. Chemistry panel revealed a sodium of 135. Initial troponin was 2.37 and on recheck was 2.08. Chest x-ray revealed cardiomegaly with mild interstitial prominence. CT pulmonary angiogram revealed no PE. There is moderate right pleural effusion with underlying vascular congestion. There was a small hiatal hernia as well. She was given a dose of Zosyn 4.5 g IV. Admission was recommended. 03/03: fever resolved. 03/04: Improving, but still hypoxic. Breathing comfortably. Normal sinus rhythm. S: O: NAD, alert and oriented. Fluent speech. Lungs are clear, normal rate and effort. Heart is regular, no murmur gallop or rub. Abdomen is soft, non distended. Extremities are free of edema. IMAGING: CXR: Cardiomegaly. Mild interstitial prominence may indicate mild edema. CTA Chest: No pulmonary embolus. Moderate right pleural effusion with underlying vascular congestion A/P: 1. Aspiration pneumonia, improving. Patient was short of breath immediately postprocedure and is now febrile. She also has a mild leukocytosis. Suspect an aspiration event. We will continue IV Zosyn. She is now defervesced. Will continue close monitoring. 2. Acute hypoxic respiratory failure, improving. Possibly secondary to aspiration pneumonitis as well as right pleural effusion. Will wean O2 as able. She may benefit from a low-dose of furosemide if she continues to require some oxygen in the morning. 3. Atrial fibrillation status post ablation She is now in sinus rhythm. Continue apixaban, amiodarone, diltiazem. Although her troponin is elevated, it is trending down. 4. Dyspepsia Continue pantoprazole for now 5. Chronic congestive heart failure, unspecified She has not on any chronic diuretics with the exception of spironolactone. This will be continued. Her BNP was 798. As noted above will consider some gentle diuresis if she continues to require oxygen in the morning. PLAN: -Continue IV Abx (Zosyn). -Wean O2 as able. -Out of bed. Code status Full Prophylaxis On Eliquis Exam Vital Signs (past 8 hours): - 03/05/25 04:24 Temperature 96.5 F L Pulse Rate 70 Respiratory Rate 28 H Blood Pressure 113/53 L Pulse Oximetry 95 Oxygen Flow Rate 0 Oxygen Delivery Method Room Air Oxygen Flow Rate 0 Objective Labs 03/05/25 04:40 03/05/25 04:40 Labs: Laboratory Results - last 24 hr 03/05/25 04:40 WBC 13.3 H RBC 3.68 L Hgb 11.0 L Hct 32.6 L MCV 88.4 MCH 29.8 MCHC 33.7 RDW 14.4 Plt Count 213 Neut % (Auto) 72.3 Lymph % (Auto) 19.3 L [place] % (Auto) 7.8 Eos % (Auto) 0.5 L Baso % (Auto) 0.1 Neut # (Auto) 9600 H Lymph # (Auto) 2600 [place] # (Auto) 1000 H Eos # (Auto) 100 Baso # (Auto) 0 Sodium 137 Potassium 3.6 Chloride 105 Carbon Dioxide 25 BUN 22 H Creatinine 0.95 Estimated GFR > 60 BUN/Creatinine Ratio 23.2 H Glucose 92 Calcium 8.7 PFSH Social History Smoking Status: Former smoker Assessment & Plan Time-Based Coding :: [TOTAL MINUTES] spent with patient and on the chart (including review of chart, obtaining history, exam, reviewing outside data, placing orders, documenting exam and treatment plan, and counseling patient) on [DATE]. Quality VTE Deep Vein Thrombosis/Pulmonary Embolism Present on Admission: No
--- NOTE | 2025-03-05 08:23 | PC.NURSE ---
Day shift: Pt reporting increased malaise and generalized discomfort/pain, medicated as documented. Pt reporting hives, visualized on left neck and right upper chest. Provider Dr. Kaiser notified, pharmacist Jasmine notified. Pt on RA, lungs clear and diminished in bases, denies SOB or chest discomfort. Care ongoing.
[2025-03-05] MEDS: metroNIDAZOLE 500 MG/100 ML PIGGYBACK 100 MG IV (09:04)
[2025-03-05] MEDS: APIXABAN 5 MG TABLET PO (09:04)
[2025-03-05] MEDS: SPIRONOLACTONE 25 MG TABLET 50 MG PO (09:04)
[2025-03-05] MEDS: diphenhydrAMINE 50 MG/ML VIAL 25 MG IV (09:04)
[2025-03-05] MEDS: AMIODARONE 200 MG TABLET PO (09:04)
[2025-03-05 12:00] VITALS: BP 114/58; PULSE 80; RESP 21; O2SAT 96
--- NOTE | 2025-03-05 12:21 | PM.DS.1 ---
History of Present Illness History of Present Illness Chief complaint: post cardiac ablation, fever and sob Narrative: From H&P: 74-year-old female with fairly recent diagnosis of permanent atrial fibrillation on chronic Eliquis anticoagulation, chronic congestive heart failure, GERD, diabetes mellitus on his appetite, who underwent a cardiac ablation for atrial fibrillation 2 days ago who presented to the emergency department complaining of shortness of breath and fever. Patient reports she learned she would atrial fibrillation through her smart watch. She states that she would receive notifications and thought that the watch was malfunctioning. She was not particularly symptomatic. She did notice when exercising she would get fairly high heart rates at 1 time as high as 180. She did find her exercise tolerance had decreased but she assumed it was related to her age or being deconditioned. When she went to see her primary care provider for her physical, she mentioned at the end of the visit about her watch showing AFib. Her PCP obtained an EKG which showed AFib and she was referred to Cardiology. A cardioversion was done after she was placed on anticoagulation but was unsuccessful. She ultimately underwent ablation 48 hours ago. She states that when she came out of anesthesia she was short of breath. She also had a cough which she presumed was related to intubation. She additionally had a sore throat. She had pressure in her chest which she was reassured was normal. She additionally had some abdominal discomfort which was new for her. She states she is typically able to eat anything she wants but has had difficulty eating a meal since her ablation. She states that she has been taking Protonix since the ablation due to this sensation of abdominal fullness. She states she has had ongoing chest discomfort which she expected after the ablation but has continued to have shortness of breath and this abdominal fullness sensation. Today however she developed a fever and came to the emergency department for further evaluation. In the emergency department she had a temperature of 100.8?, normal heart rate, respiratory rate in the high 20s to low 40s, O2 saturation down to 88% and up to 92% on 2 L. white blood cell count was 15 point. INR 1.5. Chemistry panel revealed a sodium of 135. Initial troponin was 2.37 and on recheck was 2.08. Chest x-ray revealed cardiomegaly with mild interstitial prominence. CT pulmonary angiogram revealed no PE. There is moderate right pleural effusion with underlying vascular congestion. There was a small hiatal hernia as well. She was given a dose of Zosyn 4.5 g IV. Admission was recommended. Since admission, patient notes she is feeling better. She has defervesced. She is now able to eat a meal and states it is the 1st real meal she has had since her ablation. 03/04: Normal sinus rhythm, improved, on oxygen. No fever. 03/05: Off oxygen, developed a pruritus and red skin before Zosyn started. Zosyn stopped and she was given ceftriaxone and Flagyl instead. Discharge Providers Provider Date of admission: 03/03/25 11:39 Discharge Date: 03/05/25 Primary care physician: Doctor Mathis, Discharge provider: Willie Kaiser MD Summary Hospital Course Discharge Diagnosis: 1. Aspiration pneumonia, improving. Patient was short of breath immediately postprocedure and is now febrile. She also has a mild leukocytosis. Suspect an aspiration event. 2. Acute hypoxic respiratory failure, improving. Possibly secondary to aspiration pneumonitis as well as right pleural effusion. 3. Atrial fibrillation status post ablation NSR. Continue apixaban, amiodarone, diltiazem. Although her troponin is elevated, it is trending down. 4. Dyspepsia Continue pantoprazole for now 5. Chronic congestive heart failure, unspecified She has not on any chronic diuretics with the exception of spironolactone. This will be continued. Her BNP was 798. As noted above will consider some gentle diuresis if she continues to require oxygen in the morning. 6. Rash and pruritus on the morning of March 05, preceding Zosyn dosing. Hospital Course: She was admitted for probable aspiration pneumonia in context of her recent cardiac ablation. She was given IV antibiotics and her fever improved. She additionally required oxygen but was able to wean off without difficulty. In the day of discharge she had some red skin and pruritus which was felt to possibly relate to a drug reaction. Zosyn was stopped and she was given alternative antibiotics. Status at Discharge Cognitive/behavioral status at discharge: oriented Functional status at discharge: independent ambulation Overall status at discharge: patient is back to baseline Time Spent with Patient Time spent: Greater than 30 minutes Exam Vital Signs (past 8 hours): - 03/05/25 04:24 03/05/25 08:00 03/05/25 09:00 Temperature 96.5 F L Pulse Rate 70 70 Respiratory Rate 28 H 24 Blood Pressure 113/53 L 113/53 L Pulse Oximetry 95 96 Oxygen Delivery Method Room Air Oxygen Flow Rate 0 Oxygen Delivery Method Room Air Oxygen Flow Rate 0 Narrative Exam Narrative: NAD, alert and oriented. Fluent speech. Lungs are clear, normal rate and effort. Heart is regular, no murmur gallop or rub. Abdomen is soft, non distended. Extremities are free of edema. Objective ECG Impression: Intervals [place] Rate: 78 P: 79 [place]: 156 QRS: 37 QRSD: 84 T: 35 QT: 362 QTc: 412 Interpretive Statements Normal sinus rhythm Imaging Multiple studiesL : Radiologist's impression: CXR: Cardiomegaly. Mild interstitial prominence may indicate mild edema. CTA Chest: No pulmonary embolus. Moderate right pleural effusion with underlying vascular congestion Labs 03/05/25 04:40 03/05/25 04:40 Labs: Laboratory Results - last 24 hr 03/05/25 04:40 WBC 13.3 H RBC 3.68 L Hgb 11.0 L Hct 32.6 L MCV 88.4 MCH 29.8 MCHC 33.7 RDW 14.4 Plt Count 213 Neut % (Auto) 72.3 Lymph % (Auto) 19.3 L [place] % (Auto) 7.8 Eos % (Auto) 0.5 L Baso % (Auto) 0.1 Neut # (Auto) 9600 H Lymph # (Auto) 2600 [place] # (Auto) 1000 H Eos # (Auto) 100 Baso # (Auto) 0 Sodium 137 Potassium 3.6 Chloride 105 Carbon Dioxide 25 BUN 22 H Creatinine 0.95 Estimated GFR > 60 BUN/Creatinine Ratio 23.2 H Glucose 92 Calcium 8.7 PFSH Social History Smoking Status: Former smoker Discharge Assessment & Plan Assessment and Plan Assessment: 1. Aspiration pneumonia, improved. 2. Acute hypoxic respiratory failure, resolved. 3. Recent ablation for atrial fibrillation, in normal sinus rhythm and stable. Discharge Plan Discharge Plan Patient Disposition: Home Provider Discharge Comment: Stable for discharge home on oral antibiotics. Discharge orders & Medications Prescriptions: New cefdinir 300 mg capsule 300 mg PO BID Qty: 8 0RF metronidazole 500 mg tablet 500 mg PO TID Qty: 12 0RF Continued fluticasone propionate [Flonase Allergy Relief] 50 mcg/actuation spray,suspension 1 spray intranasal Q12H Qty: 16 0RF Rx Instructions: administer into each nostril amiodarone 200 mg tablet 200 mg PO Q12H Eliquis 5 mg tablet 5 mg PO BID clonazepam 0.5 mg tablet 0.5 mg PO DAILY PRN (Reason: anxiety) diltiazem HCl 120 mg capsule,extended release 24 hr 120 mg PO Q24H Patient Comments: [NO ORIGINAL SIG] meloxicam 15 mg tablet 15 mg PO DAILY PRN (Reason: back pain) mupirocin 2 % ointment 1 applic topical DIRECTED oxycodone 5 mg tablet 5 mg PO Q6H PRN (Reason: pain) spironolactone 25 mg tablet 25 mg PO BID pantoprazole 40 mg tablet,delayed release (DR/EC) 40 mg PO DAILY Zepbound 2.5 mg/0.5 mL pen injector 2.5 mg SUBCUT WEEKLY Patient Comments: [NO ORIGINAL SIG] Follow up/Referrals: Miscellaneous,DoctorMD [Primary Care Provider, Medical] Discharge Health Status Multidrug resistant organism: No MDRO Diet/Activity/Treatments Diet: Diet as Tolerated Skin/Wound/Dressing Care Report to your healthcare provider any signs of infection, such as:: chills, fever Visit Report/Discharge Packet Instructions: DI for Pneumonia -- Adult, DI for Aspiration Pneumonia Stand Alone Forms: Patient Portal/API Discharge Data Primary Care Provider: Doctor Delfina Quality [facility] Deep Vein Thrombosis/Pulmonary Embolism Present on Admission: No
--- NOTE | 2025-03-05 13:46 | PC.NURSE ---
Discharge: Pt agreeable to discharge. Instructions provided to pt on antibiotic course, s/s to return to the ED, follow up with her providers in [place], stroke s/s. IV discontinued, telemetry removed. Pt dressed self. Wheeled via w/c to private vehicle with PCT at approximately 1333.
--- NOTE | 2025-03-05 13:50 | CM.DPNOTE ---
DCP Note [facility] [employer] reviewed EMR per provider, dc home today. per RN no new CM needs identified. P: home with family support and OP f/u recommended. CM team will continue to follow as needed in case any additional DCP needs should arise ANNELIESE Kuo
== END 2025-03-05 13:33 | disposition home or self-care (01) | DRG 205 ==
LOC: ED 11:37 → AC 11:40 → ICU 13:36
PROVIDERS: Hospitalist; Admitting Provider Family Medicine; Emergency Provider Emergency Medicine; Referring Provider Emergency Medicine; Visit Provider Family Medicine
DX: J95.4 Chemical pneumonitis due to anesthesia (principal); J96.01 Acute respiratory failure with hypoxia; J90 Pleural effusion, not elsewhere classified; I50.9 Heart failure, unspecified; K21.9 Gastro-esophageal reflux disease without esophagitis; L29.9 Pruritus, unspecified; R21 Rash and other nonspecific skin eruption; T41.0X5A Adverse effect of inhaled anesthetics, initial encounter; E11.9 Type 2 diabetes mellitus without complications; F41.9 Anxiety disorder, unspecified; Y84.8 Other medical procedures as the cause of abnormal reaction of the patient, or of later complication, without mention of misadventure at the time of the procedure; Z79.01 Long term (current) use of anticoagulants; Z87.891 Personal history of nicotine dependence; Z86.79 Personal history of other diseases of the circulatory system; Z79.85 Long-term (current) use of injectable non-insulin antidiabetic drugs
CPT/HCPCS: 36415; 71045; 71275; 80048; 80053; 83605; 83880; 84145; 84484; 85025; 85610; 87040; 87633; 93005; 94660; 96365; 96375; 99285; J0696; J1200; J2543; J2919; Q9967